=== PATIENT | male | born 1985 | race Caucasian/White ===

== ENCOUNTER 2016-07-05 13:06 | Emergency (ER) | payer SELFPAY ==
[2016-07-05 13:13] VITALS: BP 134/81
[2016-07-05] MEDS ORDERED: DEXAMETHASONE 10 MG/ML VIAL PO STA (13:33)
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
[2016-07-05] MEDS ORDERED: DEXAMETHASONE 10 MG/ML VIAL ONE (13:40)
[2016-07-05] MEDS ORDERED: CHERRY SYRUP 10 ML UDC PO ONE (13:40)
== END 2016-07-05 13:55 | disposition home or self-care (01) ==
LOC: ED 13:06
DX: S39.012A Strain of muscle, fascia and tendon of lower back, initial encounter (principal); M70.88 Other soft tissue disorders related to use, overuse and pressure other site; X50.0XXA Overexertion from strenuous movement or load, initial encounter; Y93.89 Activity, other specified; Y92.511 Restaurant or cafe as the place of occurrence of the external cause; Y99.0 Civilian activity done for income or pay; R03.0 Elevated blood-pressure reading, without diagnosis of hypertension; F17.200 Nicotine dependence, unspecified, uncomplicated
CPT/HCPCS: 99283; A9270

== ENCOUNTER 2022-06-07 17:34 | Outpatient (CLI) | payer OTHER, MEDICAID | END 2022-06-07 23:59 | disposition short-term general hospital (02) | LOC: EMS 17:34 | DX: M54.6 Pain in thoracic spine (principal); M54.50 Low back pain, unspecified; M25.551 Pain in right hip; M25.552 Pain in left hip; R10.11 Right upper quadrant pain; R10.2 Pelvic and perineal pain; V59.40XA Driver of pick-up truck or van injured in collision with unspecified motor vehicles in traffic accident, initial encounter; Y92.414 Local residential or business street as the place of occurrence of the external cause | CPT/HCPCS: A0425; A0427 ==

== ENCOUNTER 2023-05-03 23:21 | Emergency (ER) | payer MEDICAID, OTHER ==
[2023-05-03 23:33] VITALS: BP 139/93; O2SAT 97
--- NOTE | 2023-05-03 23:47 | ED Physician Documentation ---
History of Present Illness - Stated complaint Stated Complaint: FIT - Chief complaint Chief Complaint: Trauma Ext - History obtained from History obtained from: Patient, Police - Additonal information Additional information: Brought to ED by police; patient is under arrest and police are requesting fit for confinement clearance. Patient's only c/o is left lower leg swelling and erythema, unclear timing of onset. Patient says he has had similar symptoms (pain, redness) in same area which has been diagnosed in the past as "a skin infection" (per patient) and treated with antibiotics. PD PAST MEDICAL HISTORY - Past Medical History Past Medical History: No - Past Surgical History Past Surgical History: Yes - Present Medications Home Medications: Ambulatory Orders Medication Instructions Recorded Confirmed Cyclobenzaprine [Flexeril] 10 mg PO TID PRN #20 tablet 07/05/16 Oxycodone HCl/Acetaminophen 1 each PO Q6HR PRN #20 tablet 07/05/16 [Percocet 5-325 mg Tablet] Doxycycline [Vibramycin] 100 mg PO BID #14 tablet 05/03/23 - Allergies Allergies/Adverse Reactions: Allergies Allergy/AdvReac Type Severity Reaction Status Date / Time No Known Drug Allergies Allergy Verified 07/05/16 13:10 - Social History Does the pt smoke?: Yes Smoking Status: Current every day smoker Does the pt drink ETOH?: No Does the pt have substance abuse?: Yes PD ED PE NORMAL - Vitals Vital signs reviewed: Yes - General General: Alert and oriented X 3, No acute distress, Well developed/nourished - Cardiac Cardiac: RRR, No murmur - Respiratory Respiratory: No respiratory distress, Clear bilaterally PD ED PE EXPANDED - Extremities Extremities: Pedal edema bilateral (1+ BLE , pitting, distal to mid-lower leg. There is flat erythema with sharp margins on left anterior lower pre-tibial surface without fluctuance or discharge and without abnormal warmth to touch) Results - Vitals Vitals: Oxygen O2 Source Room air PD Medical Decision Making - ED course Complexity details: considered differential, d/w patient ED course: The LLE discoloration has appearance that is more suggestive of chronic venous stasis changes/PVD, but will cover for possible cellulitis as this is also a reasonable possibility. Given 100mg doxycycline in ED and rx for one-week course provided. He is cleared for confinement. Departure - Departure Disposition: Home, Self Care Clinical Impression: Cellulitis Condition: Good Instructions: ED Infec Skin Cellulitis Prescriptions: Doxycycline [Vibramycin] 100 mg PO BID #14 tablet Comments: I suspect the skin color changes of your left leg or due to circulatory problems rather than skin infection. Although unlikely, infection (cellulitis) remains a possibility and thus I am prescribing a 1-week course of an antibiotic for you, the first dose of which was given in the emergency department. Forms: PCP List Discharge Date/Time: 05/04/23 00:02
[2023-05-04] MEDS: DOXYCYCLINE 100 MG TABLET PO STA (00:01)
== END 2023-05-04 00:02 | disposition home or self-care (01) ==
LOC: ED 23:21
DX: L03.116 Cellulitis of left lower limb (principal); F17.200 Nicotine dependence, unspecified, uncomplicated
CPT/HCPCS: 99282; 99284; A9270

== ENCOUNTER 2023-07-23 01:30 | Outpatient (CLI) | payer MEDICAID | END 2023-07-23 23:59 | disposition EMS.NT | LOC: EMS 01:30 | DX: Z03.89 Encounter for observation for other suspected diseases and conditions ruled out (principal); F11.90 Opioid use, unspecified, uncomplicated ==